=== PATIENT | female | born 1945 | race Caucasian/White ===

== ENCOUNTER → 2017-01-05 | Outpatient (CLI) | payer MEDICARE, BC ==
[~2017-01-05] MED LIST: ACEBUTOLOL HYD200 MG PO; ANORO IH; ASPIRIN 81M81 MG/TA2 PO; CENTRUM SILVER1 TA1 PO; CYANOCOBAL1000 MCG/M IM; FLONASE NASAL S16 GM NS; LASIX 40MG TABL40 MG PO; LEVEMIR FLEX100 U/ML SQ; LEVEMIR FLEXPEN SC; MICRO-K 1010 MEQ PO; MUCINEX 60600 MG/TA1 PO; NOVOLOG FLEX100 U/ML SC; PATANASE0.6% NS; PREDNISONE20 MG PO; PRINIVIL20 MG PO; PROAIR HFA0.09 MG/AC IH; PROTONIX 40MG T40 MG PO; SINGULAIR 110 MG/TAB PO; STOOL SOFTENER100 M2 PO; SYNTHROID0.1 MG/TAB PO; SYNTHROID0.125 MG/T PO; THEO-24 20200 MG/CAP PO; XYAL5 MG PO; ZAROXOLYN 2.52.5 MG PO
== END ==
LOC: SUN.DIA 11:20
DX: E11.65 Type 2 diabetes mellitus with hyperglycemia (principal); Z79.4 Long term (current) use of insulin; E66.9 Obesity, unspecified; Z68.37 Body mass index [BMI] 37.0-37.9, adult; Z71.3 Dietary counseling and surveillance; E78.5 Hyperlipidemia, unspecified; I10 Essential (primary) hypertension

== ENCOUNTER 2017-02-16 12:13 | Day surgery (SDC) | payer MEDICARE, BC ==
[~2017-02-16] VITALS: Ht 170.3 cm; Wt 112.0 kg
[2017-02-16] VITALS (8 sets, daily range): BP systolic 107–147; BP diastolic 53–76; PULSE 60–78; TEMP 97.5
[~2017-02-16 12:13] MED LIST changes: -ANORO IH; -CYANOCOBAL1000 MCG/M IM; -FLONASE NASAL S16 GM NS; -PATANASE0.6% NS; -PRINIVIL20 MG PO; -PROAIR HFA0.09 MG/AC IH; -SYNTHROID0.125 MG/T PO; -THEO-24 20200 MG/CAP PO; -ZAROXOLYN 2.52.5 MG PO
[2017-02-16 13:19] LABS: HEMATOCRIT 37.7 % (37.0-47.0); HEMOGLOBIN 13.1 g/dl (12.5-16.0); MEAN CELL VOLUME 83 fl (80.0-100.0); MEAN CORPUSCULAR HEMOGLOBIN 29 pg (27.0-31.0); MEAN CORPUSCULAR HGB CONC 35 g/dl (33.0-37.0); MEAN PLATELET VOLUME 10.3 fl (7.4-10.4); PLATELET COUNT 341 K/mm3 (130-400); RED BLOOD COUNT 4.52 M/mm3 (4.10-5.30); REDCELL DISTRIBUTION WIDTH-CV 13.8 % (11.5-14.5); WHITE BLOOD COUNT 12.6 K/mm3 (4.8-10.8)
[2017-02-16 13:22] LABS: INR 1.2 (0.8-3.0); PROTHROMBIN TIME 12.8 SECONDS (9.7-12.8)
[2017-02-16 13:27] LABS: CALCIUM 9.8 mg/dL (8.4-10.2); CREATININE, serum 1.03 mg/dL (0.52-1.25); POTASSIUM 4.1 mmol/L (3.4-5.0)
[2017-02-16] MEDS ORDERED: PRINIVIL20 MG PO (13:31)
[2017-02-16] MEDS ORDERED: PROAIR HFA0.09 MG/AC IH (13:35)
[2017-02-16] MEDS ORDERED: ANORO IH (13:36)
[2017-02-16] MEDS ORDERED: PATANASE0.6% NS (13:38)
[2017-02-16] MEDS ORDERED: FLONASE NASAL S16 GM NS (13:39)
[2017-02-16] MEDS ORDERED: ZAROXOLYN 2.52.5 MG PO (13:41)
[2017-02-16] MEDS ORDERED: THEO-24 20200 MG/CAP PO (13:42)
[2017-02-16] MEDS ORDERED: CYANOCOBAL1000 MCG/M IM (13:43)
[2017-02-16] MEDS ORDERED: SYNTHROID0.125 MG/T PO (13:44)
== END 2017-02-16 18:00 ==
LOC: EUO 12:13 → COL.RAD 12:30 → EUO 12:30
PROVIDERS: Internal Medicine Interventional Cardiology
DX: R07.9 Chest pain, unspecified (principal); R94.39 Abnormal result of other cardiovascular function study; I20.9 Angina pectoris, unspecified; E11.9 Type 2 diabetes mellitus without complications; I10 Essential (primary) hypertension; E78.5 Hyperlipidemia, unspecified; Z87.891 Personal history of nicotine dependence; Z79.4 Long term (current) use of insulin
CPT/HCPCS: C1769; C1887; C1894; J2250; J3010; Q9967

== ENCOUNTER → 2017-07-06 | Outpatient (CLI) | payer MEDICARE, BC ==
[~2017-07-06] MED LIST changes: +ANORO IH; +CYANOCOBAL1000 MCG/M IM; +FLONASE NASAL S16 GM NS; +PATANASE0.6% NS; +PRINIVIL20 MG PO; +PROAIR HFA0.09 MG/AC IH; +SYNTHROID0.125 MG/T PO; +THEO-24 20200 MG/CAP PO; +ZAROXOLYN 2.52.5 MG PO
== END ==
LOC: SUN.DIA 09:53
DX: E11.9 Type 2 diabetes mellitus without complications (principal); Z79.4 Long term (current) use of insulin; E78.5 Hyperlipidemia, unspecified; I10 Essential (primary) hypertension; E66.9 Obesity, unspecified; Z71.3 Dietary counseling and surveillance; Z87.891 Personal history of nicotine dependence
CPT/HCPCS: G0108

== ENCOUNTER → 2017-11-11 | Outpatient (CLI) | payer MEDICARE, BC | LOC: SUN.DIA 10:54 | DX: E11.9 Type 2 diabetes mellitus without complications (principal); Z79.4 Long term (current) use of insulin; E78.5 Hyperlipidemia, unspecified; I10 Essential (primary) hypertension; E66.9 Obesity, unspecified; Z68.38 Body mass index [BMI] 38.0-38.9, adult; Z71.3 Dietary counseling and surveillance; Z87.891 Personal history of nicotine dependence | CPT/HCPCS: G0108 ==

== ENCOUNTER → 2018-03-17 | Outpatient (CLI) | payer MEDICARE, BC | LOC: SUN.DIA 11:15 | DX: Z01.89 Encounter for other specified special examinations (principal) | CPT/HCPCS: G0108 ==

== ENCOUNTER → 2018-05-30 | Outpatient (CLI) | payer MEDICARE, BC | LOC: SUN.DIA 05-19 16:36 | DX: E11.9 Type 2 diabetes mellitus without complications (principal); Z79.4 Long term (current) use of insulin; E78.5 Hyperlipidemia, unspecified; I10 Essential (primary) hypertension; E66.9 Obesity, unspecified; Z68.37 Body mass index [BMI] 37.0-37.9, adult; Z71.3 Dietary counseling and surveillance; Z87.891 Personal history of nicotine dependence | CPT/HCPCS: G0108 ==

== ENCOUNTER → 2018-08-30 | Outpatient (CLI) | payer MEDICARE, BC | LOC: SUN.DIA 12:50 | DX: E11.9 Type 2 diabetes mellitus without complications (principal); I10 Essential (primary) hypertension; E66.9 Obesity, unspecified | CPT/HCPCS: G0108 ==

== ENCOUNTER → 2019-01-05 | Outpatient (CLI) | payer MEDICARE, BC | LOC: SUN.DIA 12-29 14:56 | DX: E11.9 Type 2 diabetes mellitus without complications (principal); E78.5 Hyperlipidemia, unspecified; I10 Essential (primary) hypertension; E66.9 Obesity, unspecified | CPT/HCPCS: G0108 ==

== ENCOUNTER → 2019-03-13 | Outpatient (CLI) | payer MEDICARE, BC | LOC: SUN.DIA 15:29 | DX: E11.9 Type 2 diabetes mellitus without complications (principal); Z79.4 Long term (current) use of insulin; E78.5 Hyperlipidemia, unspecified; I10 Essential (primary) hypertension; E66.9 Obesity, unspecified | CPT/HCPCS: G0108 ==

== ENCOUNTER → 2019-06-12 | Outpatient (CLI) | payer MEDICARE, BC | LOC: DIA.ED 11:32 | DX: E11.9 Type 2 diabetes mellitus without complications (principal); E78.5 Hyperlipidemia, unspecified; I10 Essential (primary) hypertension; E66.9 Obesity, unspecified; Z79.4 Long term (current) use of insulin | CPT/HCPCS: G0108 ==

== ENCOUNTER → 2019-09-19 | Outpatient (CLI) | payer MEDICARE, BC | LOC: DIA.ED 11:41 | DX: E11.9 Type 2 diabetes mellitus without complications (principal); E78.5 Hyperlipidemia, unspecified; I10 Essential (primary) hypertension; E66.9 Obesity, unspecified; Z79.4 Long term (current) use of insulin | CPT/HCPCS: G0270 ==